=== PATIENT | male | born 1950 | race Caucasian/White ===

== ENCOUNTER 2018-12-02 15:34 | Observation (INO) | payer MEDICARE ==
[2018-12-02] VITALS (7 sets, daily range): BP systolic 124–150; BP diastolic 76–95; BMI 26.6
[~2018-12-02] VITALS: Ht 172.7 cm; Wt 79.5 kg
--- NOTE | ~2018-12-02 | HEMODYNAMI ---
PATIENT:AMBER MAHARAJ MEDICAL RECORD: [id number] : 52 LOCATION:[facility] D.2124 ADMISSION DATE: 12/02/18 Generatedon:12/04/201810:18 Patient name: AMBER MAHARAJ Patient #: [id number] SSN: : Date of study: 12/04/2018 Page: Of Hemodynamic Procedure Report Patient Data Patient Demographics Procedure consent was obtained First Name: AMBER Gender: Male Last Name: NICKO : 1950 [facility] Initial: CECE Age: 68 year(s) Patient #: [id number] Race: Unknown Additional ID: [id number] Contact details Address: [address] [place] [address] ROAD [place] [facility] Zip code: [address] Past Medical History Allergies: No known allergies Admission Admission Data Admission Date: 12/02/2018 Admission Time: 18:12 Arrival Date: 12/02/2018 Arrival Time: 18:12 Admit Source: Other Insurance Payor: Medicare Room #: D.2124 Height (in.): 67.72 BSA: 1.93 (m2) Height (cm.): 172 BMI: 27.04 (kg/m2) Weight (lbs.): 176.37 Weight (kg.): 80 Lab Results Lab Result Date: 12/04/2018 Lab Result Time: 0:00 Biochemistry Name Units Result Min Max BUN mg/dl 16 --(---*)-- 7 18 Creatinine mg/dl 0.9 --(-*--)-- 0.6 1.3 CBC Name Units Result Min Max Hemoglobin g/dl 15.1 --(-*--)-- 13.5 17.5 Procedure Procedure Types Cath Procedure Diagnostic Procedure LHC LHC w/Coronaries w/Grafts PCI Procedure Coronary Stent Coronary Stent Initial Procedure Description Procedure Date Procedure Date: 12/04/2018 Procedure Start Time: 9:36 Procedure End Time: 10:17 Procedure Staff Name Function Jama Wynn MD Performing Physician Alvaro Lopez RT Monitor Nicole Lyons RT Scrub Lane Martínez RN Nurse Maurice Pedraza RN [facility] Procedure Data Cath Procedure Fluoroscopy Diagnostic fluoroscopy Total fluoroscopy Time: time: 11.1 min 11.1 min Diagnostic fluoroscopy Total fluoroscopy dose: dose: 1373 mGy 1373 mGy Contrast Material Contrast Material Type Amount (ml) Isovue 370 97 Entry Location Entry Primary Successful Side Size Upsize 1 Upsize Entry Closure Dao ccessful Closure Location (Fr) (Fr) 2 (Fr) Remarks Device Remarks Femoral Right 5 Fr 6 Fr 6 Fr Exoseal artery Mid-Length Short Estimated blood loss: 10 ml Diagnostic catheters Device Type Used For End Catheter Placement MULTIPACK 3DRC 5Fr Procedure catheter MULTIPACK JL 4.0 5Fr Procedure catheter DIAGNOSTIC AR MOD 5Fr Procedure Catheter ([id number]) DIAGNOSTIC IM 5Fr Procedure catheter ([id number]) MULTIPACK Pigtail 5 Fr Procedure catheter Procedure Complications No complications Procedure Medications Medication Administration Route Dosage 0.9% NaCl I.V. 100 ml/hr Oxygen etCO2 Nasal cannula 2 l/min Heparin Flush Bag added to field 2 bags (1000units/500ml NS) Lidocaine 2% added to field 20 Versed I.V. 2 mg Fentanyl I.V. 100 mcg Heparin Bolus I.V. 8000 units Versed I.V. 1 mg Plavix P.O. 600 mg Hemodynamics Rest BSA: 1.93 (m2) HGB: 15.1 (g/dl) O2 Consumption: Estimated: 208.31 (ml/min) O2 Co nsumption indexed: Estimated:107.93 (ml/min/m) Heart Rate: 48 (bpm) Pressure Samples Time Site Value (mmHg) Purpose Heart Use Rate(bpm) 9:54 LV 135/4,9 Snapshot 58 10:02 AO 112/66(85) Snapshot 46 Gradients Valve Time Site Site Mean SEP/DFP Peak To Heart Use 1 2 (mmHg) (sec/min) Peak Rate (mmHg) (bpm) Aortic 9:55 LV AO 70 Snapshots Pre Cath Intra NCS Post Cath Vital Signs Time Heart Resp SPO2 etCO2 NIBP (mmHg) Rhythm Pain Sedation Rate (ipm) (%) (mmHg) Status Level (bpm) 9:14:46 54 23 100 23.1 140/86(112) NSR 0 (11) 10(A) , No pain 9:18:56 53 19 100 27.6 140/89(113) NSR 0 (11) 10(A) , No pain 9:23:06 57 15 99 32.9 139/89(100) NSR 0 (11) 10(A) , No pain 9:27:16 61 15 97 43.3 135/90(122) NSR 0 (11) 10(A) , No pain 9:31:32 57 15 97 0 131/68(98) NSR 0 (11) 10(A) , No pain 9:35:42 53 10 99 39.6 135/80(109) NSR 0 (11) 10(A) , No pain 9:39:52 59 16 97 12.7 121/83(96) NSR 0 (11) 9(A) , No pain 9:43:55 63 15 94 0 137/86(121) NSR 0 (11) 9(A) , No pain 9:48:05 60 13 93 42.6 124/81(108) NSR 0 (11) 9(A) , No pain 9:52:07 80 15 92 42.6 142/94(115) NSR 0 (11) 9(A) , No pain 9:56:25 54 14 99 39.6 128/75(107) NSR 0 (11) 9(A) , No pain 10:00:35 56 14 98 14.9 123/73(92) NSR 0 (11) 9(A) , No pain 10:04:45 54 13 98 39.6 111/74(85) NSR 0 (11) 10(A) , No pain 10:08:48 51 11 98 36.6 126/78(102) NSR 0 (11) 9(A) , No pain 10:12:56 60 15 97 37.4 121/84(96) NSR 0 (11) 9(A) , No pain 10:17:00 57 19 96 32.1 127/91(118) NSR 0 (11) 9(A) , No pain Medications Time Medication Route Dose Verified Delivered Reason Notes Effectiveness by by 9:15:41 0.9% NaCl I.V. [address] Per physician ml/hr Mauricio Martínez RN RN 9:15:[address] for low 02 sats Nasal l/min Mauricio Martínez cannula RN RN 9:16:13 Heparin Flush added [address] used for Bag to bags Mauricio Martínez procedure (1000units/500ml field RN RN NS) 9:16:23 Lidocaine 2% added 20ml Lane Lane for local to vial Mauricio Martínez anesthetic field RN RN 9:36:11 Versed I[address] for sedation Mauricio Martínez RN RN 9:36:[address] for sedation mcg Mauricio Martínez RN RN 10:01:32 Heparin Bolus I.V. 8,[address] for units Mauricio Martínez anticoagulation RN RN 10:08:[address]ed I[address] for sedation Mauricio Martínez RN RN 10:15:[address] for mg Mauricio Martínez antiplatelet RN RN therapy Procedure Log Time Note 8:37:15 Diagnostic Cath Status : Elective 8:58:36 Maurice Pedraza RN sent for patient. Start room use. 8:58:38 Time tracking: Regular hours (M-F 7:00 - 5:00) 8:58:42 Plan of Care:Hemodynamics will remain stable., Cardiac rhythm will remain stable., Comfort level will be maintained., Respiratory function will remain adequate., Patient/ family verbilizes understanding of procedure., Procedure tolerated without complication., Recovers from procedure without complications.. 8:59:07 Lab Result : Hemoglobin 15.1 g/dl 8:59:07 Lab Result : Creatinine 0.9 mg/dl 8:59:07 Lab Result : BUN 16 mg/dl 9:03:17 Admit Source: Other 9:03:23 Patient Height : 67.72 inches 9:03:36 Patient Weight : 176.37 lbs 9:03:36 Insurance Payor : Medicare 9:03:45 Arrival Date: 12/02/2018 6:12:00 PM 9:08:27 Patient received from Med II to CCL 2 Alert and oriented. Tansferred to table in Supine position. 9:08:29 Warm blankets applied, and sylvia hugger turned on for patient comfort. 9:08:30 Correct patient and procedure confirmed by team. 9:08:32 Signed procedure consent form obtained from patient. 9:08:34 ECG and BP/O2 sat monitors applied to patient. 9:13:37 Vital chart was started 9:13:38 Baseline sample Acquired. 9:13:44 Rhythm: sinus bradycardia 9:13:46 Full Disclosure recording started 9:14:07 H&P Date Dictated: 12/03/2018 Within 30 days and on chart., H&P Addendum completed by physician on day of procedure. (MUST COMPLETE FOR ALL OUTPATIENTS). 9:14:10 Family in patients room. 9:14:14 Patient NPO since Midnight. 9:14:25 Patient allergic to No known allergies 9:14:29 Is patient on blood thinner?Yes 9:14:33 ACC The patient was administered the following blood thiners within the last 24 hours: ACCAspirin 9:14:35 Patient diabetic? No. 9:14:38 ----Pre-sedation anethsthesia assessment.---- 9:14:42 Previous problem with sedation/anesthesia? No ? 9:14:44 Snore? Yes 9:14:45 Sleep apnea? No 9:14:49 Deviated septum? No 9:14:51 Opens mouth fully? Yes 9:14:52 Sticks out tongue? Yes 9:14:56 Airway obstruction? No ? 9:15:00 Dentures? No ? 9:15:41 0.9% NaCl 100 ml/hr I.V. was administered by Lane Martínez RN; Per physician; 9:15:54 Oxygen 2 l/min etCO2 Nasal cannula was administered by Lane Martínez RN; for low 02 sats; 9:16:13 Heparin Flush Bag (1000units/500ml NS) 2 bags added to field was administered by Lane Martínez RN; used for procedure; 9:16:23 Lidocaine 2% 20ml vial added to field was administered by Lane Martínez RN; for local anesthetic; 9:17:33 Pre-procedure instructions explained to patient. 9:17:33 Pre-op teaching completed and patient verbalized understanding. 9:21:02 Pre procedure: right dorsailis pedis pulse 1+ Palpable, but thready & weak; easily obliterated 9:21:04 Patient pain scale 0/10 ?. 9:21:16 IV patent on arrival in left forearm with 0.9% NaCl at KVO. 9:21:18 Lab results completed and on chart. 9:21:22 Right groin area was prepped with chlora-prep and draped in sterile fashion 9:21:23 Alarms reviewed by R. N. 9:21:24 Sharps counted by scrub and verified by R.N. 9:21:27 Use device set Femoral Dx 9:21:29 Tegaderm 4 x 4 (1626W) opened to sterile field. 9:21:30 ACIST Manifold (61293) opened to sterile field. 9:21:31 ACIST Hand Control (04086) opened to sterile field. 9:21:32 ACIST Syringe (19875) opened to sterile field. 9:21:32 Bag Decanter (2002S) opened to sterile field. 9:21:33 Medline Cath Pack ([id number]) opened to sterile field. 9:21:33 DIAGNOSTIC WIRE .035 260cm J wire (637363) opened to sterile field. 9:21:35 DIAGNOSTIC Multipack 5Fr catheter set (GD3363) opened to sterile field. 9:21:36 SHEATH 5FR [place] (WRP076) opened to sterile field. 9:26:35 Zero performed for pressure channel P1 9:31:30 --------ALL STOP TIME OUT------ 9:31:35 Final Timeout: patient, procedure, and site verified with staff and physician. All members of the team are in agreement. 9:31:51 Right groin site verified by team. 9:31:54 Maximum allowable Isovue 370 dose 300ml. Physician notified. (300ml for normal creatinines. For patients with creatinine of 1.7 or higher multiply weight(kg) x 5 divided by creatinine.) 9:31:58 Fire Safety Assessment: A--An alcohol-based skin anteseptic being used preoperatively., C--Open oxygen or nitrous oxide is being used., D--An ESU, laser, or fiber-optic light is being used. 9:32:03 Physical assessment completed. ASA score P 2 - A patient with mild systemic disease as per Jama Wynn MD. 9:32:09 Sedation plan: IV Moderate Sedation Medication:Versed, Fentanyl 9:36:11 Versed 2 mg I.V. was administered by Lane Lorigan RN; for sedation; 9:36:18 Procedure started. 9:36:19 Fentanyl 100 mcg I.V. was administered by Lane Martínez RN; for sedation; 9:36:20 Local anesthetic to right femoral artery with Lidocaine 2% by Jama Wynn MD.INITIAL ACCESS ONLY 9:40:36 A 5 Fr sheath was inserted into the Right Femoral artery 9:41:15 A MULTIPACK 3DRC 5Fr catheter was advanced over the wire and used for Procedure. 9:41:51 WHOLEY 300cm 0.035 wire ([id number]) opened to sterile field. 9:42:24 Wholey wire used to advance catheter. 9:42:43 Wire removed. 9:43:40 RCA angiography performed. 9:43:42 Catheter exchanged over wire. 9:45:11 A MULTIPACK JL 4.0 5Fr catheter was advanced over the wire and used for Procedure. 9:45:18 LCA angiography performed. 9:45:50 Catheter exchanged over wire. 9:46:36 A DIAGNOSTIC AR MOD 5Fr Catheter (437019S) was advanced over the wire and used for Procedure. 9:47:24 SVG to Circ occluded. 9:48:12 Catheter exchanged over wire. 9:49:06 A DIAGNOSTIC IM 5Fr catheter ([id number]) was advanced over the wire and used for Procedure. 9:53:41 DENISE to LAD angiography performed. 9:53:52 Catheter exchanged over wire. 9:54:07 A MULTIPACK Pigtail 5 Fr catheter was advanced over the wire and used for Procedure. 9:55:16 LV gram done using TAVERAS 9:55:24 EF : 30 % 9:55:32 LV hemodynamics recorded. 9:55:37 Injector settings: Ml/sec: 10, Volume: 20, 9:55:55 Catheter exchanged over wire. 9:56:09 Use device set WYNN PCI 9:57:59 SHEATH 6FR Brite Tip 35cm (472138Q) opened to sterile field. 9:58:00 SHEATH 6FR [place] (CUG129) opened to sterile field. 9:58:04 GUIDE 6FR XBLAD 3.5 catheter ([id number]) opened to sterile field. 9:58:07 BMW 300cm [place] 2 J wire ([id number]) opened to sterile field. 9:58:09 INFLATOR Merit BasixCompak (PF6779) opened to sterile field. 9:58:11 TUBING High Pressure Extension Tubing (Wynn) ([id number]) opened to sterile field. 9:58:29 Sheath upsized to a 6 Fr Mid-Length. 10:00:23 6 Fr XBLAD 3.5 guide catheter was inserted over the wire 10:01:14 Pre PCI Site: [place] mCirc has 95% stenosis. 10:01:32 Heparin Bolus 8,000 units I.V. was administered by Lane Martínez RN; for anticoagulation; 10:01:32 BMW wire advanced. 10:02:21 Wire advanced across lesion. 10:04:15 Inflate balloon Inflation number: 1 A EMERGE OTW 2.5 x 15 balloon ([id number]) was prepped and advanced across the Mid CX 95, then inflated to 14 ALLEGRA for 0:10 (min:sec) . 10:08:21 Balloon removed over the wire. 10:08:36 Versed 1 mg I.V. was administered by Lane Martínez RN; for sedation; 10:09:55 Place stent Inflation Number: 2 A COBRA RX 3.5 X 24 Stent was prepped and advanced across the Mid CX 95. The stent was deployed at 12 ALLEGRA for 0:10 (min:sec) 0. 10:10:23 Stent catheter was removed intact over wire. 10:10:26 Wire removed. 10:10:30 Guide catheter removed. 10:11:03 EXOSEAL 6Fr (EX600) opened to sterile field. 10:11:18 Sheath upsized to a 6 Fr Short. 10:11:18 Sheath removed intact; hemostasis achieved with Exoseal to the Right Femoral artery. 10:12:14 Procedure ended.(Physican Out) 10:12:43 Fluoroscopy time 11.10 minutes. 10:12:46 Fluoroscopy dose: 1373 mGy 10:12:46 Flurop Dose total: 1373 10:13:14 Contrast amount:Isovue 370 97ml. 10:13:15 Sharps counted by scrub and verified by R.N. 10:13:28 Insertion/operative site no bleeding no hematoma. 10:13:46 Post-op/insertion site Right Femoral artery dressed using a 4 x 4 and Tegaderm. 10:13:47 Post Procedure Pulses reassessed and unchanged 10:13:50 Post-procedure physical assessment completed. ASA score P 2 - A patient with mild systemic disease as per Jama Wynn MD. 10:13:52 Post procedure rhythm: unchanged. 10:13:55 Estimated blood loss: 10 ml 10:13:58 Post procedure instruction explained to patient.Patient verbalizes understanding. 10:13:59 Patient needs reinforcement of post procedure teaching. 10:14:06 Procedure type changed to Cath procedure, Diagnostic procedure, LHC, LHC w/Coronaries w/Grafts, PCI procedure, Coronary Stent, Coronary Stent Initial 10:14:09 Procedure Complication : No complications 10:14:39 Procedure and supply charges have been captured, reviewed, submitted and are correct. 10:15:32 Plavix 600 mg P.O. was administered by Lane Martínez RN; for antiplatelet therapy; 10:17:28 Vital chart was stopped 10:17:29 See physician's report for complete and final results. 10:17:36 Report given to PCU. 10:17:41 Patient transfered to PCU with Bed. 10:17:42 Procedure ended. 10:17:42 Full Disclosure recording stopped 10:17:49 End room use (Document Last) Intervention Summary Intervention Notes Time ActionType Lesion and Equipment Action# Pressure Duration Attributes Used 10:04:15 Inflate Mid CX EMERGE OTW 1 14 00:10 balloon 2.5 x 15 balloon ([id number]) 10:09:55 Place stent Mid CX COBRA RX 3.5 2 12 00:10 X 24 Stent Device Usage Item Name Manufacture Quantity Catalog Number [facility] Minimal Lot# / Charge Number Stock Stock Serial# Code Tegaderm 4 x 4 3M 1 1626W 098257 250125 180781 5 (1626W) ACIST Manifold Acist 1 61876 610759 066217 835185 5 (82515) Medical Systems Inc ACIST Hand Acist 1 62381 889597 725139 769621 5 Control Medical (92027) Systems Inc ACIST Syringe Acist 1 85582 253583 936113 059885 20 (51637) Medical Systems Inc Bag Decanter Microtek 1 2001S 424838 31263 764475 5 (2001S) Medical Inc. Medline Cath Medline 1 HYIM58604 122205 89280 742109 5 Pack ([id number]) DIAGNOSTIC St Rob 1 707050 614728 336975 364561 30 WIRE .035 260cm J wire (817350) DIAGNOSTIC Cardinal 1 UM4839 327841 09205 482232 30 Multipack 5Fr Health catheter set (YE1035) SHEATH 5FR Terumo 1 KQN455 729675 759232 760403 5 [place] (VGO185) MULTIPACK 3DRC Cardinal 1 493394 5 5Fr catheter Health WHOLEY 300cm Medtronic 1 OBTE20565 282926 546066 687132 3 0.035 wire ([id number]) MULTIPACK JL Cardinal 1 881013 5 4.0 5Fr Health catheter DIAGNOSTIC AR Cardinal 1 898869F 733993 457790 457699 15 MOD 5Fr Health Catheter (502553T) DIAGNOSTIC IM Cardinal 1 298667W 306746 887915 620888 5 5Fr catheter Health (690940X) MULTIPACK Cardinal 1 129031 5 Pigtail 5 Fr Health catheter SHEATH 6FR Cardinal 1 024464S 796064 641383 932279 1 Brite Tip 35cm Health (751346V) SHEATH 6FR Terumo 1 FBH294 939065 268726 184690 40 [place] (PBQ337) GUIDE 6FR Cardinal 1 87704167 839090 478217 630208 10 XBLAD 3.5 Health catheter (43640636) BMW 300cm Frias 1 8613855L 973188 921479 754740 5 [place] 2 J Vascular wire (2020394S) INFLATOR Merit Merit 1 GQ0102 555916 252148 555063 15 BasixCompak Medical (EL0165) TUBING High Merit 1 PF6676Q 147862 23063 844931 10 Pressure Medical Extension Tubing (Wynn) (AS5382N) EMERGE OTW 2.5 [place] 1 [id number] 717020 302227 548852 5 77144965 x 15 balloon Scientific ([id number]) COBRA RX 3.5 X Celonova 1 685-09-90138 767867 747700062 548864 6 5 [id number] 24 stent Biosciences () EXOSEAL 6Fr Cardinal 1 EX600 464867 726598 244919 10 (EX600) Health Signature Audit [place] Stage Time Signature Unsigned Intra-Procedure 12/04/2018 Alvaro Lopez 10:18:09 AM RT(R) Signatures Monitor : Alvaro Lopez RT Signature : Date : Time : [place] [address] [place] [address]
[2018-12-02] MEDS ORDERED: NORVASC5 MG PO (16:16)
[2018-12-02] MEDS ORDERED: LISINOPRIL5 MG PO (16:16)
[2018-12-02] MEDS ORDERED: ISOSORBIDE MONO60 M1 PO (16:17)
[2018-12-02] MEDS ORDERED: FLOMAX0.4 MG PO (16:17)
[2018-12-02] MEDS ORDERED: ASPIRIN81 MG PO (16:18)
[2018-12-02] MEDS ORDERED: FOLATE0.4 MG PO (16:19)
[2018-12-02 18:46] LABS: BASOPHILS 0.2 % (0-2); EOSINOPHILS 2.4 % (0-7); HEMATOCRIT 45.4 % (42.0-54.0); IMMATURE GRANULOCYTES 0.2 % (0-5); LYMPHOCYTES 19.3 % (15-50); MCH 32.1 pg (26.0-34.0); MCHC 35.2 g/dL (31.0-37.0); MEAN PLATELET VOLUME 9.9 fL (7.4-10.4); MONOCYTES 5.5 % (2-11); NEUTROPHILS 72.4 % (40-80); PLATELET COUNT 205 10x3/uL (130-400); RBC 4.98 10x6/uL (4.20-6.10); RDW 12.6 % (11.5-14.5); WBC 10.1 10x3/uL (4.8-10.8)
[2018-12-02 18:49] LABS: MCV 91.3 fL (80.0-100.0)
[2018-12-02 19:02] LABS: ALBUMIN 3.9 g/dL (3.4-5.0); ALKALINE PHOSPHATASE 43 U/L (46-116); ALT (SGPT) 36 U/L (10-68); BILIRUBIN - TOTAL 0.92 mg/dL (0.2-1.3); CALC OSMOLALITY 267 mosm/kg (275-300); CALCIUM 9.5 mg/dL (8.5-10.1); CARBON DIOXIDE 30.9 mmol/L (21.0-32.0); CHLORIDE - SERUM 98 mmol/L (98-107); GLUCOSE 100 mg/dL (74-106); POTASSIUM - SERUM 3.9 mmol/L (3.5-5.1); SODIUM 134 mmol/L (136-145); UREA NITROGEN 13 mg/dL (7-18); eGFR NON AFRICAN AMERICAN 79 mL/min (90-120)
[2018-12-02 19:04] LABS: INR 1.54 (0.85-1.17); PROTIME 17.8 SECONDS (11.6-15.0)
--- NOTE | 2018-12-02 19:07 | NUR ---
PT SITTING IN BED AT THIS TIME DENIES NEEDS
[2018-12-02 19:18] LABS: MAGNESIUM - SERUM 2.1 mg/dL (1.8-2.4); PRO BNP 522 pg/mL (0-125); THYROID STIMULATING HORMONE 1.92 uIU/mL (0.36-3.74)
--- NOTE | 2018-12-02 19:36 | NUR ---
RECIEVED REPORT FROM ZANE AVELAR IN ER. TRANSFER TO FLOOR VIA W/C. ALERT AND ORIENTED X4. UP AD APOLINAR. DENIES ANY PAIN . IV TO RIGHT AND LEFT FA SL.. ASSESSMENT COMPLETED. V/S'S TAKEN AND STANDING WT COMPLETED. TELEMETRY IN PLACE. HEART RATE 77 SINUS WITH PAC. BSX4Q. LUNG SOUNDS CLEAR BILATERALLY. NO EDEMA OBSERVED. DENIES ANY NEEDS AT THIS TIME.
[2018-12-02 23:23] LABS: CREATINE KINASE 150 UL (21-232)
[2018-12-03] VITALS: BP 125/84
[2018-12-03 04:00] VITALS: BP 126/84
[2018-12-03 05:53] LABS: BASOPHILS 0.2 % (0-2); EOSINOPHILS 3.5 % (0-7); HEMATOCRIT 45.1 % (42.0-54.0); HEMOGLOBIN 15.8 g/dL (13.5-17.5); IMMATURE GRANULOCYTES 0.2 % (0-5); LYMPHOCYTES 14.7 % (15-50); MCH 31.8 pg (26.0-34.0); MCV 90.7 fL (80.0-100.0); MEAN PLATELET VOLUME 10.4 fL (7.4-10.4); MONOCYTES 7.1 % (2-11); NEUTROPHILS 74.3 % (40-80); PLATELET COUNT 188 10x3/uL (130-400); RBC 4.97 10x6/uL (4.20-6.10); RDW 12.7 % (11.5-14.5); WBC 8.4 10x3/uL (4.8-10.8)
[2018-12-03 06:23] LABS: ALBUMIN 3.5 g/dL (3.4-5.0); ALKALINE PHOSPHATASE 43 U/L (46-116); ALT (SGPT) 32 U/L (10-68); BILIRUBIN - TOTAL 0.86 mg/dL (0.2-1.3); CALC OSMOLALITY 270 mosm/kg (275-300); CALCIUM 9.3 mg/dL (8.5-10.1); CARBON DIOXIDE 25.4 mmol/L (21.0-32.0); CHLORIDE - SERUM 101 mmol/L (98-107); CKMB 2.1 U/L (0.0-3.6); CREATINE KINASE 143 UL (21-232); CREATININE - SERUM 0.8 mg/dL (0.6-1.3); GLUCOSE 91 mg/dL (74-106); PROTEIN - SERUM 7.3 g/dL (6.4-8.2); SODIUM 135 mmol/L (136-145); UREA NITROGEN 15 mg/dL (7-18); eGFR NON AFRICAN AMERICAN > 90 mL/min (90-120)
[2018-12-03 06:24] LABS: TROPONIN-I 0.131 ng/mL (0.000-0.060)
[2018-12-03 07:46] VITALS: BP 118/79
[2018-12-03 11:46] VITALS: BP 126/79
[2018-12-03 11:50] LABS: CALC OSMOLALITY 278 mosm/kg (275-300); CALCIUM 9.2 mg/dL (8.5-10.1); CARBON DIOXIDE 27.6 mmol/L (21.0-32.0); CHLORIDE - SERUM 101 mmol/L (98-107); CREATINE KINASE 144 UL (21-232); GLUCOSE 99 mg/dL (74-106); SODIUM 139 mmol/L (136-145); UREA NITROGEN 16 mg/dL (7-18); eGFR NON AFRICAN AMERICAN 79 mL/min (90-120)
[2018-12-03 13:04] VITALS: Ht 172.7 cm; Wt 79.5 kg
[2018-12-03 15:21] VITALS: BP 144/72
--- NOTE | 2018-12-03 16:46 | NUR ---
ALERT AND ORIENTED X4. UP AMBULATING IN MARI. GAIT STEADY. CONSENTS FOR RENTAL CLERK SIGNED ON CHART. SINUS RHYTHM 70 ON TELEMETRY. REFUSE LIBRIUM. PATIENT STATES, "I DRINK WHEN I WANT TO. I'M NOT GONNA GO THROUGH DTs." DENIES ANY NEEDS. DENIES SOB OR PAIN. CONTINUE PLAN OF CARE AND SAFETY PRECAUTIONS.
[2018-12-03 17:48] LABS: APPEARANCE CLEAR (CLEAR); BILIRUBIN NEGATIVE (NEGATIVE); COLOR YELLOW (YELLOW); GLUCOSE NEGATIVE (NEGATIVE); KETONE NEGATIVE (NEGATIVE); NITRITE NEGATIVE (NEGATIVE); PROTEIN NEGATIVE (NEGATIVE); SPECIFIC GRAVITY 1.015 (1.005-1.020); UROBILINOGEN NORMAL (NORMAL)
--- NOTE | 2018-12-03 17:58 | NUR ---
ALERT AND ORIENTED X4. UA COLLECTED AND TAKEN TO LAB. NO CHANGE. CONTINUE PLAN OF CARE AND SAFETY PRECAUTIONS.
--- NOTE | 2018-12-03 19:54 | NUR ---
RECEIVED REPORT, WILL ASSUME CARE OF PT, PT IS WALKING IN HALLWAY, WILL CONTINUE PLAN OF CARE
[2018-12-03 20:00] VITALS: BP 146/82
[2018-12-04 00:11] VITALS: BP 132/83
--- NOTE | 2018-12-04 03:28 | NUR ---
I have reviewed this patient and I concur with the Shift Assessment completed by the Licensed Practical Nurse today this shift.
[2018-12-04 04:00] VITALS: BP 146/101
[2018-12-04 05:33] LABS: BASOPHILS 0.1 % (0-2); EOSINOPHILS 3.7 % (0-7); HEMATOCRIT 43.6 % (42.0-54.0); HEMOGLOBIN 15.1 g/dL (13.5-17.5); IMMATURE GRANULOCYTES 0.3 % (0-5); LYMPHOCYTES 15.9 % (15-50); MCH 31.6 pg (26.0-34.0); MCHC 34.6 g/dL (31.0-37.0); MCV 91.2 fL (80.0-100.0); MEAN PLATELET VOLUME 10.4 fL (7.4-10.4); MONOCYTES 6.1 % (2-11); NEUTROPHILS 73.9 % (40-80); PLATELET COUNT 178 10x3/uL (130-400); RBC 4.78 10x6/uL (4.20-6.10); RDW 12.6 % (11.5-14.5); WBC 8.9 10x3/uL (4.8-10.8)
[2018-12-04 05:43] LABS: CALC OSMOLALITY 274 mosm/kg (275-300); CALCIUM 9.1 mg/dL (8.5-10.1); CHLORIDE - SERUM 102 mmol/L (98-107); CREATININE - SERUM 0.9 mg/dL (0.6-1.3); GLUCOSE 96 mg/dL (74-106); MAGNESIUM - SERUM 2.1 mg/dL (1.8-2.4); POTASSIUM - SERUM 3.9 mmol/L (3.5-5.1); SODIUM 137 mmol/L (136-145); UREA NITROGEN 16 mg/dL (7-18); eGFR NON AFRICAN AMERICAN 89 mL/min (90-120)
--- NOTE | 2018-12-04 08:27 | NUR ---
ALERT AND ORIENTED. TELEMERTY SHOWS SR WITH [facility] PACS. SL TO RIGHT HAND AND LEFT FA. PRE OP MEDS GIVEN. WILL MONITOR
[2018-12-04 09:01] VITALS: BP 129/85
[2018-12-04 11:41] VITALS: BP 116/79
[2018-12-04] MEDS ORDERED: PLAVIX75 MG PO (12:39)
--- NOTE | 2018-12-04 12:57 | NUR ---
BACK FROM HELMINTHOLOGIST. RIGHT GROIN SOFT WITH DRSG DRY AND INTACT. PPP. V/S STABLE. TELEMERTY SHOWS SR. SR UP WITH CALL LIGHT IN REACH
--- NOTE | 2018-12-04 14:58 | NUR ---
PT DISCHARGED . IVS DCED WITH CATH INTACT. RIGHT GROIN SOFT WITH DRSG DRY AND INTACT. TO PRIVATE CAR PER WHEEL CHAIR
--- NOTE | 2018-12-04 15:44 | NUR ---
HOME PER PRIVATE CAR
--- NOTE | 2018-12-05 09:07 | MORECARE ---
CASE MANAGEMENT DISCHARGE SUMMARY PATIENT: AMBER MAHARAJ UNIT: [id number] ADM DATE: 12/02/18 AGE: 68 : 51 SEX: M ROOM/BED: D.2124 AUTHOR: TRACI VINCENT PHYSICIAN: REFERRING PHYSICIAN: LESLYE DELGADO MD DATE OF SERVICE: 12/05/18 Discharge Plan Patient Name: AMBER MAHARAJ [facility] 1950 Planned Disposition: Home Anticipated Discharge Date: 12/04/18 Discharge Date: 12/04/2018 Expected LOS: 2 Initial Reviewer: [email or web address] Initial Review Date: 12/05/2018 Generated: 12/05/18 10:06 am Coverage Notice Reviewer: [email or web address] Jana Muniz Notice Issued Date-Time: 12/03/2018 16:15 Notice Type: Medicare Outpatient Observation Notice Notice Delivered To: Patient Relationship to Patient: Self Horse Race Timer Name: Delivery Method: HAND - Hand Delivered Amina Days: Prior Verbal Notification: Recipient Understood Notice: Yes Recipient Signature: Yes Med Rec Note Co-signed by Attending: Coverage Notice Comment: Patient Name: AMBER MAHARAJ Page 33586 at 0907 All edits/amendments must be made on the electronic document DICTATION DATE: 12/05/18905 HAND HEEL SEAT FITTER: RXOY 12/05/18905 RPT#: [id number] DC DATE:12/04/18 STATUS: DIS IN [facility] [address] [place] [address] END OF REPORT
== END 2018-12-04 15:44 | disposition home or self-care (01) ==
LOC: D.ER 15:34 → OBSVTIME 18:12 → D.M2 18:12 → D.ER 19:10 → D.M2 12-04 15:44
PROVIDERS: Family Medicine; ADMIT Internal Medicine Nephrology; ATTEND Internal Medicine Nephrology
DX: I47.1 Supraventricular tachycardia (principal); I48.4 Atypical atrial flutter; I10 Essential (primary) hypertension; E78.5 Hyperlipidemia, unspecified; I25.10 Atherosclerotic heart disease of native coronary artery without angina pectoris; F10.10 Alcohol abuse, uncomplicated; F17.203 Nicotine dependence unspecified, with withdrawal

== ENCOUNTER 2019-02-20 05:17 | Day surgery (SDC) | payer MEDICARE ==
[~2019-02-20] VITALS: Ht 172.7 cm; Wt 77.6 kg
[~2019-02-20 05:17] MED LIST: ASPIRIN81 MG PO; CENTRUM MEN'S1 EACH PO; FLOMAX0.4 MG PO; FOLATE0.4 MG PO; ISOSORBIDE MONO60 M1 PO; LISINOPRIL5 MG PO; NORVASC5 MG PO; OSTEO BI-FLEX1 EAC1 PO; PLAVIX75 MG PO
[2019-02-20 05:44] LABS: BASOPHILS 0.3 % (0-2); EOSINOPHILS 2.5 % (0-7); HEMATOCRIT 42.2 % (42.0-54.0); HEMOGLOBIN 14.8 g/dL (13.5-17.5); IMMATURE GRANULOCYTES 0.3 % (0-5); LYMPHOCYTES 20.5 % (15-50); MCH 32.3 pg (26.0-34.0); MCHC 35.1 g/dL (31.0-37.0); MCV 92.1 fL (80.0-100.0); MEAN PLATELET VOLUME 10.5 fL (7.4-10.4); MONOCYTES 9.4 % (2-11); PLATELET COUNT 177 10x3/uL (130-400); RBC 4.58 10x6/uL (4.20-6.10); RDW 12.2 % (11.5-14.5); WBC 6.7 10x3/uL (4.8-10.8)
[2019-02-20 06:12] LABS: CALC OSMOLALITY 277 mosm/kg (275-300); CARBON DIOXIDE 30.3 mmol/L (21.0-32.0); CHLORIDE - SERUM 103 mmol/L (98-107); CREATININE - SERUM 0.9 mg/dL (0.6-1.3); GLUCOSE 97 mg/dL (74-106); POTASSIUM - SERUM 4.2 mmol/L (3.5-5.1); SODIUM 139 mmol/L (136-145); UREA NITROGEN 12 mg/dL (7-18); eGFR NON AFRICAN AMERICAN 89 mL/min (90-120)
[2019-02-20 06:50] VITALS: BP 111/68; Ht 172.7 cm; Wt 77.6 kg
[2019-02-20] MEDS ORDERED: HYDROCODON-ACE1 EA10 PO (10:38)
--- NOTE | 2019-02-27 10:07 | OP ---
PATIENT NAME: AMBER MAHARAJ MEDICAL RECORD: [id number] :52 LOCATION:D.OPS ADMISSION DATE: SURGEON: LOUIE BLACKWOOD MD DATE OF OPERATION: 02/20/2019 PREOPERATIVE DIAGNOSES: 1. Left inguinal hernia. 2. Coronary artery disease. 3. Hypertension. 4. Chronic obstructive pulmonary disease. POSTOPERATIVE DIAGNOSES: 1. Left inguinal hernia. 2. Coronary artery disease. 3. Hypertension. 4. Chronic obstructive pulmonary disease. PROCEDURE: Left inguinal hernia repair with medium PHS mesh. SURGEON: Louie Blackwood MD REPORT OF PROCEDURE: The patient's left groin was prepped and draped in sterile fashion. An oblique incision was made above the inguinal ligament. Electrocautery was used to dissect through the subcutaneous tissues down to the external oblique fascia. This fascia was incised to the external ring using electrocautery. A [place] was placed around the spermatic cord and the spermatic cord was elevated. The ilioinguinal nerves were found and high ligated. The patient had a direct hernia defect, which was about a centimeter in size, but also had a large indirect hernia defect. This indirect hernia defect was dissected from the spermatic cord. Once we had it dissected free, then it was placed back into the abdominal cavity. An opening was made in the inguinal floor through the hernia defect and we were able to open up the preperitoneal space of Retzius. We then placed a medium PHS mesh and sutured this down on all 4 sides using multiple interrupted 0 Vicryls. The wound was then irrigated out with normal saline and care was taken to assure there was no sign of any bleeding. At this point, the external oblique fascia was closed with running 2-0 Vicryl, Christianne's was closed with interrupted 3-0 Vicryl and the skin was closed with running subcutaneous 5-0 Monocryl. A 10 mL of 0.25% Marcaine with epinephrine was infused into the surrounding tissues and the wound was dressed appropriately. COMPLICATIONS: None. CONDITION: Stable. ANESTHESIA: General endotracheal and local. BLOOD LOSS: Minimal. TRANSINT:[id number] Voice Confirmation ID: [id number] DOCUMENT ID: [id number] OPERATIVE REPORT [id number] AMBER MAHARAJ WESKAYA LOUIE BLACKWOOD MD at [employer] by Brooke CC: [id number] DICTATION DATE: 02/20/19 1042 INTERNET APPLICATION DEVELOPER: 02/20/[address] [facility] 02/20/19 [place] [id number] [place] [id number]
== END 2019-02-20 17:55 | disposition home or self-care (01) ==
LOC: D.OPS 05:17 → D.PAN 07:15 → D.OPS 08:15
PROVIDERS: ATTEND Surgery
DX: K40.90 Unilateral inguinal hernia, without obstruction or gangrene, not specified as recurrent (principal); I25.10 Atherosclerotic heart disease of native coronary artery without angina pectoris; I10 Essential (primary) hypertension; J44.9 Chronic obstructive pulmonary disease, unspecified; Z01.812 Encounter for preprocedural laboratory examination